=== PATIENT | female | born 1985 | race Caucasian/White ===

== ENCOUNTER 2017-05-18 02:42 | Emergency (ER) | payer BC ==
[2017-05-18 03:05] VITALS: BP 106/63; PULSE 60; TEMP 97.9; BMI 21.7
[2017-05-18] MEDS ORDERED: DIPHTH,PERTUSS(ACELL),TET 0.5 ML DISP.SYRIN IM ONE (04:28)
--- NOTE | 2017-05-18 04:28 | PDOC ---
History of Present Illness - General Chief Complaint: Pain Stated Complaint: PAIN/INJURY RT HAND Time Seen by Provider: 05/18/17 03:10 - History of Present Illness Initial Comments: 05/18/17 04:19 CHIEF COMPLAINT: wrist injury HISTORY OF PRESENT ILLNESS: 31-year-old female with no past medical history presents to ED status post injury. Patient states that prior to arrival to ED, she excellently slammed her wrist into a door. Patient states that she is able to move her wrist and her fingers, but with some pain. PAST MEDICAL HISTORY: Denies past medical history FAMILY HISTORY: Denies SOCIAL HISTORY: Denies tobacco, alcohol, illicit drug use. SURGICAL HISTORY: Denies ALLERGIES: No known drug allergies REVIEW OF SYSTEMS General/Constitutional: Denies fever or chills. Denies weakness, weight change. HEENT: Denies change in vision. Denies ear pain or discharge. Denies sore throat. Cardiovascular: Denies chest pain or shortness of breath. Respiratory: Denies cough, wheezing, or hemoptysis. Gastrointestinal: Denies nausea, vomiting, diarrhea or constipation. Denies rectal bleeding. Genitourinary: Denies dysuria, frequency, or change in urination. Musculoskeletal: "I slammed my wrist in the door." Denies joint or muscle swelling or pain. Denies neck or back pain. Skin: Denies rash or easy bruising. PHYSICAL EXAM General Appearance: Well-appearing, appropriately dressed. No apparent distress. HEENT: EOMI, PERRLA, normal ENT inspection, normal voice, TMs normal, pharynx normal. No conjunctival pallor. No photophobia, scleral icterus. Neck: Supple. Trachea midline. No tenderness, rigidity, carotid bruit, stridor , lymphadenopathy, or thyromegaly. Respiratory/Chest: Lungs CTAB. Cardiovascular: RRR. S1, S2. Musculoskeletal/Extremities: Developing hematoma to dorsal aspect R hand with mild abrasion over hematoma. Mild superficial abrasion to ventral aspect of R wrist. FROM of all extremities, normal capillary refill. No tenderness to extremities, pedal edema, swelling, erythema or deformity. Integumentary: Appropriate color, dry, warm. No cyanosis, erythema, jaundice or rash Neurologic: telehealth coordinator II-XII intact. Fully oriented, alert. Appropriate mood/affect. Motor strength 5/5. No appreciable EOM palsy, facial droop or sensory deficit. Past History - Past Medical History Allergies/Adverse Reactions: Allergies Allergy/AdvReac Type Severity Reaction Status Date / Time No Known Allergies Allergy Verified 05/18/17 03:05 Home Medications: Ambulatory Orders Naproxen [Naprosyn -] 250 mg PO BID #14 tablet 05/18/17 - Immunization History Immunization Up to Date: Yes - Psycho/Social/Smoking Cessation Hx Anxiety: No Suicidal Ideation: No Smoking History: Never smoked Have you smoked in the past 12 months: No Information on smoking cessation initiated: No Hx Alcohol Use: No Drug/Substance Use Hx: No Substance Use Type: None *Physical Exam - Vital Signs Last Vital Signs Temp Pulse Resp BP Pulse Ox 97.9 F 60 14 106/63 100 05/18/17 03:01 05/18/17 03:01 05/18/17 03:01 05/18/17 03:01 05/18/17 03:01 ED Treatment Course - ADDITIONAL ORDERS Additional order review: Laboratory Results 05/18/17 03:31 Urine HCG, Qual Negative - RADIOLOGY Radiology Studies Ordered: Category Date Time Status WRIST W/HAND-RIGHT* [RAD] Stat Radiology 05/18/17 03:34 Taken Medical Decision Making - Medical Decision Making 05/18/17 04:28 31-year-old female with no past medical history presents to ED status post injury. -Hand/wrist x-ray -Tdap I M 05/18/17 04:31 X-ray wet read negative for fracture. Patient refused Tdap. Wrist immobilizer applied. Will discharge to home with NSAIDs. Advised patient to take medication as prescribed and follow up with orthopedics if symptoms persist past 3-5 days. Advised patient of signs and symptoms for return to ED. Patient verbalized understanding and agrees to plan. 05/18/17 04:35 *DC/Admit/Observation/Transfer Diagnosis at time of Disposition: Wrist injury Qualifiers: Encounter type: initial encounter Laterality: right Qualified Code(s): S69.91XA - Unspecified injury of right wrist, hand and finger(s), initial encounter - Discharge Dispostion Admit: No - Prescriptions Prescriptions: Naproxen [Naprosyn -] 250 mg PO BID #14 tablet - Referrals Referrals: Leonel Young MD [Staff Physician] - - Patient Instructions Additional Instructions: Please take medications as prescribed. Please apply RICE (rest, ice, compress, elevate) therapy to your arm to avoid further injury and inflammation. Follow up with orthopedics if pain persists past 3-5 days. If you experience any loss of sensation, swelling, or inability to move your wrist or hand, please return to the ER.
== END 2017-05-18 04:43 | disposition home or self-care (01) ==
LOC: JER 02:42
PROC: 2W3CX1Z Immobilization of Right Lower Arm using Splint (ICD-10-PCS; principal; 2017-05-18)
PROC: 3E0234Z Introduction of Serum, Toxoid and Vaccine into Muscle, Percutaneous Approach (ICD-10-PCS; 2017-05-18)
DX: S69.91XA Unspecified injury of right wrist, hand and finger(s), initial encounter (principal); W23.0XXA Caught, crushed, jammed, or pinched between moving objects, initial encounter; Y93.9 Activity, unspecified; Y92.9 Unspecified place or not applicable
CPT/HCPCS: 73110-TC-RT; 73130-TC-RT; 84703; 99283-25

== ENCOUNTER 2018-12-27 13:00 | Emergency (ER) | payer BC, OTHER ==
[2018-12-27 13:23] VITALS: BP 113/64; PULSE 64; TEMP 98.2; BMI 22.3
--- NOTE | 2018-12-27 14:16 | PDOC ---
History of Present Illness <Eun Hernandes - Last Filed: 12/27/18 14:16> - General History Source: Patient Exam Limitations: No Limitations - History of Present Illness Initial Comments: 12/27/18 15:05 The patient is a 33 year old female with no PMHx who presents to the emergency department with diffuse abdominal discomfort with associated bloating, 2 days of nausea and new onset of mild SOB which she attributes to abdominal bloating. She states that for the past ~10 weeks she has been training and dieting strictly for a fitness competition, however, on Monday she failed the diet and ate very badly which is unlike her. She reportedly vomited twice after her increased eating and woke up the next day with abdominal bloating which has increased progressively since onset. She states she normally has one BM per day , but has not had a normal BM for the past 2 days. She reports an episode of loose stool today but denies blood in the stool. The patient denies chest pain, shortness of breath, headache and dizziness. The patient denies fever, chills. The patient denies dysuria, frequency, urgency and hematuria. Allergies: NKDA <Britta Story - Last Filed: 12/27/18 15:52> - General Chief Complaint: Pain Stated Complaint: SICK Time Seen by Provider: 12/27/18 14:15 Past History - Past Medical History COPD: No - Immunization History Immunization Up to Date: Yes - Suicide/Smoking/Psychosocial Hx Smoking History: Never smoked Have you smoked in the past 12 months: No Hx Alcohol Use: No Drug/Substance Use Hx: No Substance Use Type: None <Eun Hernandes - Last Filed: 12/27/18 14:16> <Britta Story - Last Filed: 12/27/18 15:52> - Past Medical History Allergies/Adverse Reactions: Allergies Allergy/AdvReac Type Severity Reaction Status Date / Time No Known Allergies Allergy Verified 12/27/18 13:23 Home Medications: Ambulatory Orders NK [No Known Home Medication] 12/27/18 *Physical Exam - Vital Signs Last Vital Signs Temp Pulse Resp BP Pulse Ox 98.2 F 64 18 113/64 98 12/27/18 13:21 12/27/18 13:21 12/27/18 13:21 12/27/18 13:21 12/27/18 13:21 <Eun Hernandes - Last Filed: 12/27/18 14:16> - Vital Signs Last Vital Signs Temp Pulse Resp BP Pulse Ox 98.2 F 64 18 113/64 98 12/27/18 13:21 12/27/18 13:21 12/27/18 13:21 12/27/18 13:21 12/27/18 13:21 - Physical Exam Comments: 12/27/18 15:26 GENERAL: Awake, alert, and fully oriented, in no acute distress HEAD: No signs of trauma EYES: PERRLA, EOMI, sclera anicteric, conjunctiva clear ENT: Auricles normal inspection, hearing grossly normal, nares patent, oropharynx clear without exudates. Moist mucosa NECK: Normal ROM, supple, no lymphadenopathy, JVD, or masses LUNGS: Breath sounds equal, clear to auscultation bilaterally. No wheezes, and no crackles HEART: Regular rate and rhythm, normal S1 and S2, no murmurs, rubs or gallops ABDOMEN: (+) slightly distended, non tender to deep palpation. Soft, normoactive bowel sounds. No guarding, no rebound. No masses EXTREMITIES: Normal range of motion, no edema. No clubbing or cyanosis. No cords, erythema, or tenderness NEUROLOGICAL: Cranial nerves II through XII grossly intact. Normal speech, normal gait SKIN: Warm, Dry, normal turgor, no rashes or lesions noted. <Britta Story - Last Filed: 12/27/18 15:52> ED Treatment Course - LABORATORY CBC & Chemistry Diagram: 12/27/18 15:38 12/27/18 15:38 <Britta Story - Last Filed: 12/27/18 15:52> *DC/Admit/Observation/Transfer - Attestations Scribe Attestion: 12/27/18 15:06 Documentation prepared by Britta Story, acting as mobile paramedical examiner for Eun Hernandes MD <Britta Story - Last Filed: 12/27/18 15:52>
--- NOTE | 2018-12-27 14:41 | PDOC ---
History of Present Illness <PurvitatianaricardoBritta - Last Filed: 12/27/18 15:05> - General History Source: Patient Exam Limitations: No Limitations - History of Present Illness Initial Comments: 12/27/18 14:34 33YOF without PM who p/w abdominal discomfort/bloating and nausea worsening for the past 2 days, now accompanied by mild SOB which she states is d/t the abdominal bloating. She explains that for the past ~10 weeks she has been training and dieting strictly for a fitness competition, but on Monday she failed the diet and ate very badly (atypical for her). She vomited twice afterwards on Monday evening, and awakened on Monday with abdominal bloating which has since worsened. She normally has one BM per day, but has not had a normal BM for the past 2 days (did have a few episodes of loose diarrhea today) . She does not believe she is but she is sexually active with her without protection, and her LMP has been irregular on the diet. Denies recent antibiotics, travel, camping/drinking from streams, or sick contacts with similar symptoms. No f/c, bloody/black stool, white/greasy stool, or other symptoms. <Peggy Vazquez - Last Filed: 12/27/18 17:13> - General Chief Complaint: Pain Stated Complaint: SICK Time Seen by Provider: 12/27/18 14:15 Past History <Britta Story - Last Filed: 12/27/18 15:05> - Past Medical History COPD: No - Immunization History Immunization Up to Date: Yes - Suicide/Smoking/Psychosocial Hx Smoking History: Never smoked Have you smoked in the past 12 months: No Hx Alcohol Use: No Drug/Substance Use Hx: No Substance Use Type: None <Peggy Vazquez - Last Filed: 12/27/18 17:13> - Past Medical History Allergies/Adverse Reactions: Allergies Allergy/AdvReac Type Severity Reaction Status Date / Time No Known Allergies Allergy Verified 12/27/18 13:23 Home Medications: Ambulatory Orders NK [No Known Home Medication] 12/27/18 Review of Systems - Review of Systems Able to Perform ROS?: Yes Comments:: 12/27/18 14:48 GEN: no fever, chills, malaise, generalized weakness, or weight change HEENT: no ear pain, sore throat, vision change, or eye pain CV: no chest pain, palpitations, lightheadedness, syncope, or edema RESP: SOB, no cough, no wheezing GI: abdominal discomfort/bloating, diarrhea, constipation, nausea, vomiting ( Monday only), no white/black/bloody stool : no dysuria, hematuria, incontinence, retention, bleeding, or discharge MSK: no neck/back pain, muscle weakness/pain, or joint swelling/pain NEURO: no headache, seizure, vertigo, numbness, tingling, or focal weakness PSYCH: no substance use, no behavior change SKIN: no jaundice, no rash ROS otherwise negative except as noted in HPI <Peggy Vazquez - Last Filed: 12/27/18 17:13> *Physical Exam - Vital Signs Last Vital Signs Temp Pulse Resp BP Pulse Ox 98.2 F 64 18 113/64 98 12/27/18 13:21 12/27/18 13:21 12/27/18 13:21 12/27/18 13:21 12/27/18 13:21 <Britta Story - Last Filed: 12/27/18 15:05> - Vital Signs Last Vital Signs Temp Pulse Resp BP Pulse Ox 98.2 F 64 18 113/64 98 12/27/18 13:21 12/27/18 13:21 12/27/18 13:21 12/27/18 13:21 12/27/18 13:21 - Physical Exam Comments: 12/27/18 14:49 GENERAL: well-appearing, A/Ox4, no distress, answers questions appropriately HEENT: PERRLA, EOMI, moist mucous membranes NECK/BACK: no midline ttp, no spinal stepoff or deformity, no hematoma, full ROM , neck supple CARDIOVASCULAR: regular rate/rhythm, normal S1S2, no MGR, strong peripheral pulses, capillary refill <2 seconds, extremities wwp, no edema LUNGS/RESPIRATORY: no respiratory distress, CTAB GI/ABDOMEN: symmetric [id number], normoactive BS, soft, no ttp, no midline pulsatile masses : no CVA tenderness EXTREMITIES: no muscle atrophy, no acute deformity SKIN: warm and dry, no pallor, no jaundice, no rash, no bruising, no skin breakdown, no cuts, no lesions NEUROLOGICAL: GCS 15, CN II-XII grossly intact, 5/5 strength proximally and distally, no facial droop <Peggy Vazquez - Last Filed: 12/27/18 17:13> ED Treatment Course - LABORATORY CBC & Chemistry Diagram: 12/27/18 15:38 12/27/18 15:38 <Peggy Vazquez - Last Filed: 12/27/18 17:13> Medical Decision Making - Medical Decision Making 12/27/18 14:58 33YOF p/w 2 days abdominal bloating/discomfort, nausea, vomiting. Initial Vital Signs Temp Pulse Resp BP Pulse Ox 98.2 F 64 18 113/64 98 12/27/18 13:21 12/27/18 13:21 12/27/18 13:21 12/27/18 13:21 12/27/18 13:21 Exam: As noted in Physical Exam section. DDX IBNLT: viral gastroenteritis, diet-related constipation/diarrhea, UTI, influenza, abdominal migraine, much less likey bacterial gastroenteritis, SBO, etc. W/U ordered: UA Urine culture hCG CBCD CMP Lipase Laboratory Tests 12/27/18 12/27/18 12/27/18 14:45 15:38 15:38 WBC 7.0 RBC 4.79 Hgb 14.9 Hct 45.4 H MCV 94.8 MCH 31.2 MCHC 32.9 RDW 13.0 Plt Count 286 MPV 7.3 L Absolute Neuts (auto) 4.7 Neutrophils % 66.4 Lymphocytes % 20.0 Monocytes % 11.3 H Eosinophils % 1.8 Basophils % 0.5 Nucleated RBC % 0 Sodium 139 Potassium 4.5 Chloride 106 Carbon Dioxide 23 Anion Gap 10 BUN 26 H Creatinine 0.6 Creat Clearance w eGFR 115.13 Random Glucose 91 Calcium 8.4 L Total Bilirubin 0.2 AST 49 H ALT 99 H Alkaline Phosphatase 106 Total Protein 7.0 Albumin 3.9 Lipase 302 Urine Color Yellow Urine Appearance Clear Urine pH 5.0 Ur Specific Andrews 1.024 Urine Protein Negative Urine Glucose (UA) Negative Urine Ketones Negative Urine Blood Negative Urine Nitrite Negative Urine Bilirubin Negative Urine Urobilinogen 0.2 Ur Leukocyte Esterase Negative Urine HCG, Qual Negative Reassessment: repeat exam is benign, patient wants to go home. DISCHARGE This patient has gotten significant relief of symptoms while in the ED. On last reassessment, vitals are wnl, pain is reasonably controlled, and exam is benign. Workup is not concerning for emergency-level pathology at this time. This patient is appropriate for discharge with close outpatient follow up. The patient is comfortable with this plan and will follow up with their PCP in 1 -3 days. Specific return precautions are discussed and they will come back to the ER if necessary. <Peggy Vazquez - Last Filed: 12/27/18 17:13> *DC/Admit/Observation/Transfer <Britta Story - Last Filed: 12/27/18 15:05> - Discharge Dispostion Decision to Admit order: No <Peggy Vazquez - Last Filed: 12/27/18 17:13> Diagnosis at time of Disposition: Diarrhea Qualifiers: Diarrhea type: unspecified type Qualified Code(s): R19.7 - Diarrhea, unspecified - Discharge Dispostion Disposition: HOME Condition at time of disposition: Stable - Referrals Referrals: [facility] [place] [facility] [Provider Group] - Patient Instructions Printed Discharge Instructions: Diarrhea Additional Instructions: You were seen in the ER for diarrhea and abdominal discomfort. We did an exam and labs, and there were no concerning findings. After our assessment, we do not believe you are having a medical emergency at this time, and we believe you are safe to go home. Please follow up with your primary care provider in 1-3 days. We are giving you referral information for a PCP clinic in case you need a new doctor. Call their clinic, tell them you were seen in the ER, and tell them you need a follow-up. If you have any new or worsening symptoms, especially increasing discomfort, blood in the stool, white or black stool, or other signs of infection (like fever), please come back to the ER at any time ( 24 hours a day). If you are having severe or life threatening symptoms, or symptoms that make it unsafe to drive or have someone drive you, please call 911.
[2018-12-27 15:21] LABS: URINE APPEARANCE CLEAR; URINE BILIRUBIN NEGATIVE (NEGATIVE); URINE COLOR YELLOW; URINE GLUCOSE (UA) NEGATIVE (NEGATIVE); URINE KETONE NEGATIVE (NEGATIVE); URINE LEUK ESTERASE NEGATIVE (NEGATIVE); URINE NITRITE NEGATIVE (NEGATIVE); URINE PROTEIN NEGATIVE (NEGATIVE); URINE UROBILINOGEN 0.2 mg/dL (0.2-1.0)
[2018-12-27 15:24] LABS: HCG,QUALITATIVE URINE Negative
[2018-12-27 15:57] LABS: BASO % 0.5 % (0-2.0); EOS % 1.8 % (0-4.5); HEMATOCRIT 45.4 % (32.4-45.2); HEMOGLOBIN 14.9 GM/dL (10.7-15.3); MCH 31.2 pg (25.7-33.7); MCHC 32.9 g/dl (32.0-36.0); MEAN CELL VOLUME 94.8 fl (80-96); MEAN PLT VOLUME 7.3 fl (7.5-11.1); MONO % 11.3 % (3.8-10.2); NEUT % 66.4 % (42.8-82.8); PLATELET COUNT 286 K/MM3 (134-434); RBC 4.79 M/mm3 (3.60-5.2)
[2018-12-27 16:21] LABS: ALBUMIN 3.9 g/dl (3.4-5.0); ALK PHOS 106 U/L (45-117); ANION GAP 10 MMOL/L (8-16); BILIRUBIN,TOTAL 0.2 mg/dL (0.2-1); BLOOD UREA NITROGEN 26 mg/dL (7-18); CALCIUM 8.4 mg/dL (8.5-10.1); CHLORIDE 106 mmol/L (98-107); CO2 23 mmol/L (21-32); CREATININE 0.6 mg/dL (0.55-1.3); GLUCOSE,RANDOM 91 mg/dL (74-106); LIPASE 302 U/L (73-393); POTASSIUM 4.5 mmol/L (3.5-5.1); SGOT/AST 49 U/L (15-37); SGPT/ALT 99 U/L (13-61); SODIUM 139 mmol/L (136-145)
== END 2018-12-27 17:15 | disposition home or self-care (01) ==
LOC: JER 13:00
DX: R19.7 Diarrhea, unspecified (principal)
CPT/HCPCS: 36415; 80053; 81003; 83690; 84703; 85025; 87086; 99282-25

== ENCOUNTER 2021-08-22 18:24 | Emergency (ER) | payer BC, OTHER ==
[2021-08-22 18:48] VITALS: BP 138/82; PULSE 72; TEMP 98.2; BMI 24.5
[2021-08-22] MEDS ORDERED: LACTATED RINGERS SOLUTION 1000 ML INFUS.BAG IV ONE (19:06)
[2021-08-22 19:58] LABS: ALBUMIN 4.4 g/dl (3.4-5.0); BLOOD UREA NITROGEN 18.4 mg/dL (7-18); CALCIUM 9.9 mg/dL (8.5-10.1)
[2021-08-22 20:01] LABS: CREATININE 0.9 mg/dL (0.55-1.3)
[2021-08-22 20:03] LABS: BILIRUBIN,TOTAL 0.7 mg/dL (0.2-1); TOT PROT 7.6 g/dl (6.4-8.2)
[2021-08-22 20:59] LABS: BASO % 0.3 % (0-2.0); HEMATOCRIT 44.5 % (32.4-45.2); HEMOGLOBIN 15.2 GM/dL (10.7-15.3); MCH 31.4 pg (25.7-33.7); MCHC 34.1 g/dl (32.0-36.0); MEAN PLT VOLUME 7.8 fl (7.5-11.1); MONO % 9.8 % (3.8-10.2); NEUT % 80.9 % (42.8-82.8); PLATELET COUNT 266 10^3/uL (134-434); RBC 4.83 M/mm3 (3.60-5.2); RDW 12.5 % (11.6-15.6); WHITE BLOOD COUNT 13.6 K/mm3 (4.0-10.0)
== END 2021-08-22 21:31 | disposition home or self-care (01) ==
LOC: JER 18:24
DX: F41.0 Panic disorder [episodic paroxysmal anxiety] (principal)
CPT/HCPCS: 36415; 80053; 84703; 85025; 93005; 93010; 99284-25